=== PATIENT | male | born 1975 | race Caucasian/White ===

== ENCOUNTER 2020-08-25 21:26 | Emergency (ER) | payer BC ==
[2020-08-25] MEDS ORDERED: ACETAMINOPHEN TAB 500 MG TAB PO STA (21:46)
--- NOTE | 2020-08-25 21:48 | ED ---
Fever HPI - General Chief Complaint: Fever Stated Complaint: Fever Time Seen by Provider: 08/25/20 21:40 Source: patient Mode of arrival: ambulatory Limitations: no limitations - History of Present Illness Initial Comments: Patient is a 45-year-old male presenting to the emergency department with a chief complaint of fever. Patient states he was recently diagnosed with colon. States he has been having fever for about one week. States she has been taking Tylenol the fever continues to return. States that about 5 days ago he went to his primary care's office and he was started on doxycycline and had a PCR test obtained came back positive several days later. Patient denies any chest pain, shortness of breath or any other symptoms. States he does feel fatigued whenever his temperature goes up. - Related Data Home Medications Medication Instructions Recorded Confirmed Doxycycline Hyclate [Vibramycin] 100 mg PO BID 08/25/20 08/25/20 Tylenol (Unknown Strength) 1 tab PO ONETIME PRN 08/25/20 08/25/20 Allergies Allergy/AdvReac Type Severity Reaction Status Date / Time Sulfa (Sulfonamide Allergy Unknown Verified 08/25/20 23:18 Antibiotics) Review of Systems ROS Statement: Those systems with pertinent positive or pertinent negative responses have been documented in the HPI. ROS Other: All systems not noted in ROS Statement are negative. Past Medical History Past Medical History: No Reported History Past Surgical History: Orthopedic Surgery Past Psychological History: No Psychological Hx Reported Smoking Status: Never smoker Past Alcohol Use History: Occasional Past Drug Use History: None Reported General Exam Limitations: no limitations General appearance: alert, in no apparent distress, obese Head exam: Present: atraumatic, normal inspection Eye exam: Present: normal appearance, PERRL, EOMI Pupils: Present: normal accommodation ENT exam: Present: normal exam, normal oropharynx, mucous membranes moist, TM's normal bilaterally, normal external ear exam Neck exam: Present: normal inspection, full ROM. Absent: tenderness Respiratory exam: Present: normal lung sounds bilaterally. Absent: respiratory distress, wheezes, rales Cardiovascular Exam: Present: regular rate, normal rhythm, normal heart sounds. Absent: systolic murmur, diastolic murmur Course Vital Signs 08/25/20 08/25/20 08/25/20 21:29 22:45 23:53 Temperature 100.3 F H 99.2 F Pulse Rate 117 H 99 90 Respiratory 18 18 20 Rate Blood Pressure 147/86 138/98 148/92 O2 Sat by Pulse 98 98 96 Oximetry 08/26/20 01:03 Temperature 99.6 F Pulse Rate 91 Respiratory 20 Rate Blood Pressure 146/72 O2 Sat by Pulse 96 Oximetry Medical Decision Making - Medical Decision Making Patient is a 45-year-old male presents emergency Department with a chief complaint shortness of breath. Patient has been diagnosed with Covid about one week ago. Patient is currently doxycycline and was started prior to the diagnosis of Covid. On physical examination, patient is not in any respiratory distress. His base concern was the ongoing fever that has been intermittent for about one week. He has been taking Tylenol only. The chest x-ray reveals bilateral perihilar interstitial pneumonia which is improved in appearance compared to old exam. CBC CMP are unremarkable. CRP is low at 25. Negative d- dimer. Vitals are within normal limits. Patient was advised to continue taking the Tylenol. Strict return parameters were thoroughly discussed with patient was understanding and agreeable. He has no chest pain. Case discussed with physician. - Lab Data Result diagrams: 08/25/20 22:14 08/25/20 22:14 Lab Results 08/25/20 08/25/20 08/25/20 Range/Units 22:14 22:14 23:45 WBC 6.7 (3.8-10.6) k/uL RBC 5.23 (4.30-5.90) m/uL Hgb 16.5 (13.0-17.5) gm/dL Hct 49.3 (39.0-53.0) % MCV 94.3 (80.0-100.0) fL MCH 31.5 (25.0-35.0) pg MCHC 33.4 (31.0-37.0) g/dL RDW 11.9 (11.5-15.5) % Plt Count 193 (150-450) k/uL MPV 6.5 Neutrophils % 57 % Lymphocytes % 30 % Monocytes % 9 % Eosinophils % 1 % Basophils % 1 % Neutrophils # 3.8 (1.3-7.7) k/uL Lymphocytes # 2.0 (1.0-4.8) k/uL Monocytes # 0.6 (0-1.0) k/uL Eosinophils # 0.1 (0-0.7) k/uL Basophils # 0.1 (0-0.2) k/uL D-Dimer 0.53 (<0.60) mg/L FEU Sodium 137 (137-145) mmol/L Potassium 4.0 (3.5-5.1) mmol/L Chloride 102 (98-107) mmol/L Carbon Dioxide 28 (22-30) mmol/L Anion Gap 7 mmol/L BUN 16 (9-20) mg/dL Creatinine 0.97 (0.66-1.25) mg/dL Est GFR (CKD-EPI)AfAm >90 (>60 ml/min/1.73 sqM) Est GFR (CKD-EPI)NonAf >90 (>60 ml/min/1.73 sqM) Glucose 123 H (74-99) mg/dL Calcium 9.1 (8.4-10.2) mg/dL Magnesium 2.1 (1.6-2.3) mg/dL Total Bilirubin 0.3 (0.2-1.3) mg/dL AST 37 (17-59) U/L ALT 61 H (4-49) U/L Alkaline Phosphatase 58 (38-126) U/L Lactate Dehydrogenase 582 (313-618) U/L C-Reactive Protein 25.7 H (<10.0) mg/L Total Protein 7.0 (6.3-8.2) g/dL Albumin 4.0 (3.5-5.0) g/dL - EKG Data EKG Comments: Sinus tachycardia, no ST or T-wave changes. Ventricular rate 102, VA 152, QRS 90, QTC 430. Disposition Clinical Impression: Fever, COVID-19 Disposition: HOME SELF-CARE Condition: Stable Instructions (If sedation given, give patient instructions): Fever in Adults (ED) Additional Instructions: Continue taking Tylenol for her fever. Follow with primary care physician. Return to emergency department if symptoms worsen. Quarantine for 10 days after the onset of symptoms. Is patient prescribed a controlled substance at d/c from ED?: No Referrals: Og Amador MD [Primary Care Provider] - 1-2 days Time of Disposition: 00:38
[2020-08-25 22:32] LABS: Basophils # (A) 0.1 k/uL (0-0.2); Basophils % (A) 1 %; Eosinophils # (A) 0.1 k/uL (0-0.7); Eosinophils % (A) 1 %; HCT 49.3 % (39.0-53.0); HGB 16.5 gm/dL (13.0-17.5); Lymphocytes % (A) 30 %; MCH 31.5 pg (25.0-35.0); MCHC 33.4 g/dL (31.0-37.0); MCV 94.3 fL (80.0-100.0); Mean Platelet Volume 6.5; Monocytes # (A) 0.6 k/uL (0-1.0); Monocytes % (A) 9 %; Neutrophils # (A) 3.8 k/uL (1.3-7.7); Neutrophils % (A) 57 %; Platelet Count 193 k/uL (150-450); RBC 5.23 m/uL (4.30-5.90); RDW 11.9 % (11.5-15.5); WBC 6.7 k/uL (3.8-10.6)
[2020-08-25 22:36] LABS: ALT 61 U/L (4-49); AST 37 U/L (17-59); African American GFR (CKD) >90 (>60 ml/min/1.73 sqM); Alkaline Phosphatase 58 U/L (38-126); Anion Gap 7 mmol/L; Blood Urea Nitrogen 16 mg/dL (9-20); C Reactive Protein 25.7 mg/L (<10.0); Calcium 9.1 mg/dL (8.4-10.2); Carbon Dioxide 28 mmol/L (22-30); Chloride 102 mmol/L (98-107); Glucose 123 mg/dL (74-99); LDH 582 U/L (313-618); Magnesium 2.1 mg/dL (1.6-2.3); Non-African American GFR(CKD) >90 (>60 ml/min/1.73 sqM); Sodium 137 mmol/L (137-145); Total Bilirubin 0.3 mg/dL (0.2-1.3)
--- NOTE | 2020-08-25 22:48 | XR ---
EXAMINATION TYPE: XR chest 1V portable DATE OF EXAM: 08/25/2020 COMPARISON: 2108 HISTORY: Pneumonia. Short of breath. TECHNIQUE: FINDINGS: Heart is normal. There is some mild increased interstitial density in the mid lung goyal. There is no pulmonary consolidation. There are no hilar masses. Mediastinum is normal. There is no pl eural effusion. There are chest leads. IMPRESSION: Bilateral mild perihilar interstitial pneumonia is improved in appearance compared to the old exam.
[2020-08-26 00:08] VITALS: RESP 20
[2020-08-26 01:04] VITALS: BP 146/72; PULSE 91; TEMP 99.6
== END 2020-08-26 01:03 | disposition home or self-care (01) ==
LOC: EC 21:26
DX: U07.1 COVID-19 (principal); J84.9 Interstitial pulmonary disease, unspecified; Z88.2 Allergy status to sulfonamides
CPT/HCPCS: 36415; 71045; 80053; 83615; 83735; 85025; 85379; 86140; 93005; 99284